=== PATIENT | female | born 1980 | race Hispanic/Latino ===

== ENCOUNTER 2022-04-06 07:49 | Observation (INO) | payer OTHER, SELFPAY ==
[2022-04-06] VITALS (18 sets, daily range): BP systolic 128–211; BP diastolic 67–103; PULSE 52–83; RESP 16–19; TEMP 36.3–37; O2SAT 95–100; BMI 37.2
--- NOTE | 2022-04-06 08:34 | DI.RAD.S_ITS ---
PROCEDURE: XR CHEST 1V INDICATIONS: chest pain TECHNIQUE: One view of the chest was acquired. COMPARISON: None. FINDINGS: Surgical changes and devices: None. Lungs and pleura: Patchy bilateral airspace opacities, more pronounced in the left mid lung and left lung base. No pleural effusions or pneumothorax. Mediastinum: Mediastinal contours appear normal. Heart size is normal. Bones and chest wall: No suspicious bony lesions. Overlying soft tissues appear unremarkable. IMPRESSION: Patchy bilateral airspace opacities likely reflective of atypical pneumonia. Dictated by: Pierce Brown M.D. on 04/06/2022 at 9:14 Approved by: Pierce Brown M.D. on 04/06/2022 at 9:14
[2022-04-06 08:49] LABS: Add Manual Diff / Slide Review NO; Basophils Absolute Auto 0 /uL (0-100); Basophils Percent Auto 0.3 % (0-2); Eosinophils Absolute Auto 300 /uL (0-450); Eosinophils Percent Auto 2.1 % (2-4); Hematocrit 36.7 % (36-46); Hemoglobin 12.5 g/dL (12.0-16.0); Lymphocytes Absolute Auto 2500 /uL (1100-4500); Lymphocytes Percent Auto 20.4 % (25-40); Mean Corpuscular HGB Conc 34.1 % (30-36); Mean Corpuscular Hemoglobin 30.7 PG (26-34); Mean Corpuscular Volume 90.1 fL (80-100); Monocytes Absolute Auto 700 /uL (0-900); Monocytes Percent Auto 5.5 % (3-14); Neutrophils Absolute Auto 8800 /uL (1500-7000); Neutrophils Percent Auto 71.7 % (50-75); Platelet Count 269 X10^3/uL (150-400); Red Blood Cell Count 4.08 X10^6/uL (4.0-5.2); Red Cell Distribution Width 13.6 % (11.6-14.8); White Blood Cell Count 12.3 X10^3/uL (4.5-11.0)
[2022-04-06 08:56] LABS: Alanine Aminotransferase 20 IU/L (<35); Albumin 4.5 g/dL (3.5-5.0); Albumin Globulin Ratio 1.3 (1.0-2.8); Alkaline Phosphatase 63 U/L (38-126); Aspartate Aminotransferase 21 IU/L (14-36); BUN Creatinine Ratio 16.9 (6-22); Bilirubin Total 0.3 mg/dL (0.2-1.3); Blood Urea Nitrogen 12 mg/dL (7-17); Carbon Dioxide 24 mmol/L (22-32); Chloride 105 mmol/L (98-107); Creatine Kinase 48 U/L (30-135); Estimated Glomerular Filt Rate > 60 mL/min (>60); Globulin 3.6 g/dL (1.7-4.1); Glucose 107 mg/dL (70-100); HEMOLYSIS < 15 (0-50); Lipase 89 U/L (23-300); Magnesium 1.6 mg/dL (1.6-2.3); Sodium 140 mmol/L (137-145); Total Protein 8.1 g/dL (6.3-8.2)
--- NOTE | 2022-04-06 09:00 | ED_ITS ---
HPI - Chest Pain General Chief Complaint: Chest Pain Stated Complaint: Chest pain/ high bp, takes bp meds Time Seen by Provider: 04/06/22 09:00 Source: patient Mode of arrival: Ambulatory Limitations: no limitations Limitations: no limitations History of Present Illness HPI narrative: This is a 41-year-old female with history of hypertension, dyslipidemia, diabetes and prior stroke 10 years ago. Patient states today about 630 in the morning she developed substernal chest pain which she describes as 10/10 without radiation, pleuritic which has since decreased to 2/10. Patient denies any shortness of breath currently but states she felt short of breath initially with it. She denies any syncope or lightheadedness, no nausea or vomiting, no diaphoresis. No abdominal, back or flank pain. She did take 162 mg aspirin. She notes she is been out of her lisinopril for the last 3 days but is still taking her labetalol, metformin and has not started her atorvastatin but has a prescription. Patient states that she does not know why she had a stroke in the past she never followed up for it but states it was very minor. She denies surgeries except for dental surgery. She does smoke 5 cigarettes daily, no alcohol, no illicit other than THC edibles. She notes mom's side of the family has had heart attacks, breast cancer, cholesterol diabetes and she is a brother with diabetes and hypertension but no other known cardiac disease. She does have a primary care [facility]. She has never had a stress test or other cardiac workup. Related Data Home Medications Medication Instructions Recorded Confirmed labetalol 200 mg tablet 200 mg PO BID 04/06/22 04/06/22 lisinopril 5 mg tablet 5 mg PO DAILY 04/06/22 04/06/22 Allergies Allergy/AdvReac Type Severity Reaction Status Date / Time kiwi Allergy Verified 04/06/22 16:29 Review of Systems Review of Systems ROS Unobtainable: All systems reviewed & are unremarkable except as noted in HPI and below Patient History Medical History (Updated 04/06/22 @ 11:49 by Paco Longoria DO) HTN (hypertension) Surgical History (Updated 04/06/22 @ 11:49 by Paco Longoria DO) No pertinent past surgical history Family History (Updated 04/06/22 @ 11:50 by Paco Longoria DO) Mother CAD (coronary artery disease) Hypertension Diabetes mellitus Father No pertinent past medical history Social History household members: spouse and family Smoking Status: Never smoker Smoking Status: Never smoker alcohol intake frequency: other Exam Narrative Exam Narrative: GENERAL: Alert and oriented x three, female in mild distress, no diaphoresis HEENT: Head normocephalic, atraumatic, EOMI, pupils reactive, face symmetric, moist mucous membranes NECK: Supple, full range of motion CARDIOVASCULAR: Regular rate and rhythm without murmurs, rubs or gallops. No JVD. No swelling bilateral lower extremities. No reproducible chest pain on palpation. No rash or skin changes. RESPIRATORY: Breath sounds equal bilaterally, no wheezes rales or rhonchi. ABDOMEN: Soft, nontender. Normoactive bowel sounds all 4 quadrants. No guarding or rebound, rigidity, no mass : No CVA tenderness EXTREMITIES: Normal range of motion, no clubbing or edema. Neurovascularly intact NEUROLOGICAL: Cranial nerves II through XII grossly intact. Moving all extremities SKIN: Warm, dry, no petechiae, no rashes or lesions. Initial Vital Signs Initial Vital Signs: Vital Signs Pulse Rate 65 04/06/22 08:03 Pulse Oximetry 99 04/06/22 08:03 Scores HEART Score Heart Score history: Moderately Suspicious Heart Score EKG: Normal Heart Score Age: < 45 years old Heart Score risk factors: > 3 risk factors or hx of atherosclerotic disease Heart Score troponin: < or = to normal limit Heart Score Total: 3 Course Orders Ordered: ED Orders 04/06/22 12:31 Education, smoking cessation ONGOING 04/06/22 15:55 Troponin I Urgent 04/07/22 05:00 Basic Metabolic Panel DAILY Complete Blood Count AUTO DIFF DAILY Hemoglobin A1C% w Est Avg Glu Routine Lipid Panel Routine Magnesium DAILY TSH w/ Reflex to FT4 Routine 04/08/22 05:00 Basic Metabolic Panel DAILY Complete Blood Count AUTO DIFF DAILY Magnesium DAILY 04/09/22 05:00 Basic Metabolic Panel DAILY Complete Blood Count AUTO DIFF DAILY Magnesium DAILY Acetaminophen (Acetaminophen 325 Mg Tablet) 975 mg PO Q8H PRN PRN Reason: Pain, Mild (1-3) Amoxicillin/Clavulanate Potassium (Amoxicillin/Clav 875/125 Mg) 1 tab PO BID EDIL Last Admin: 04/06/22 15:18 Dose: 1 tab Documented By: LDV Aspirin (Aspirin Ec 81 Mg Tablet) 81 mg PO DAILY EDIL Atorvastatin Calcium (Atorvastatin 20 Mg Tablet) 40 mg PO BEDTIME EDIL Azithromycin (Azithromycin 250 Mg Tablet) 250 mg PO DAILY EDIL Ibuprofen (Ibuprofen 600 Mg Tablet) 600 mg PO Q8H PRN PRN Reason: Fever/Mild Pain (1-3) Lisinopril (Lisinopril 5 Mg Tablet) 5 mg PO DAILY EDIL Ondansetron HCl (Ondansetron 4 Mg/2 Ml Inj) 4 mg IV Q8HR PRN PRN Reason: Nausea And Vomiting Discontinued Medications Aspirin (Aspirin 81 Mg Chew Tab) 161 mg PO NOW ONE Stop: 04/06/22 09:20 Last Admin: 04/06/22 09:34 Dose: 161 mg Documented By: RAJWINDER Azithromycin (Azithromycin 250 Mg Tablet) 500 mg PO NOW ONE Stop: 04/06/22 14:09 Last Admin: 04/06/22 15:18 Dose: 500 mg Documented By: LDV Nitroglycerin (Nitroglycerin 0.4 Mg Sl Tab) 0.4 mg SL NOW ONE Stop: 04/06/22 09:20 Last Admin: 04/06/22 09:33 Dose: 0.4 mg Documented By: RAJWINDER Consultations Consultation #1: Dr. Longoria, hospitalist saw patient in the department discussed patient has atypical pneumonia on chest x-ray read but I am unimpressed on myself he did see and evaluate the patient here in the department and elects to keep for observation for stress testing. Time: 10:57 Vital Signs Vital signs: Vital Signs - 8 hr 04/06/22 08:05 04/06/22 08:03 04/06/22 08:30 Temperature 98.6 F Pulse Rate 69 65 58 L Respiratory Rate 19 Blood Pressure 211/103 H Pulse Oximetry 99 99 98 Oxygen Delivery Method Room Air 04/06/22 08:31 04/06/22 08:31 04/06/22 09:00 Temperature Pulse Rate 59 L Respiratory Rate Blood Pressure 147/67 H 172/74 H Pulse Oximetry 99 Oxygen Delivery Method 04/06/22 09:00 04/06/22 09:30 04/06/22 09:30 Temperature Pulse Rate 64 65 Respiratory Rate Blood Pressure 176/80 H Pulse Oximetry 99 100 Oxygen Delivery Method 04/06/22 09:40 04/06/22 09:40 04/06/22 10:00 Temperature Pulse Rate 64 Respiratory Rate Blood Pressure 145/69 H 140/69 Pulse Oximetry 98 Oxygen Delivery Method 04/06/22 10:00 Temperature Pulse Rate 54 L Respiratory Rate Blood Pressure Pulse Oximetry 99 Oxygen Delivery Method MDM - Chest Pain Lab Data Result diagrams: 04/06/22 08:00 04/06/22 08:00 Labs: Lab Results 04/06/22 04/06/22 04/06/22 Range/Units 08:00 08:00 09:30 WBC 12.3 H (4.5-11.0) X10^3/uL RBC 4.08 (4.0-5.2) X10^6/uL Hgb 12.5 (12.0-16.0) g/dL Hct 36.7 (36-46) % MCV 90.1 (80-100) fL MCH 30.7 (26-34) PG MCHC 34.1 (30-36) % RDW 13.6 (11.6-14.8) % Plt Count 269 (150-400) X10^3/uL Neut % (Auto) 71.7 (50-75) % Lymph % (Auto) 20.4 L (25-40) % Gillespie % (Auto) 5.5 (3-14) % Eos % (Auto) 2.1 (2-4) % Baso % (Auto) 0.3 (0-2) % Neut # (Auto) 8800 H (0070-8067) /uL Lymph # (Auto) 2500 (8483-8076) /uL Gillespie # (Auto) 700 (0-900) /uL Eos # (Auto) 300 (0-450) /uL Baso # (Auto) 0 (0-100) /uL Sodium 140 (137-145) mmol/L Potassium 4.0 (3.4-5.1) mmol/L Chloride 105 (98-107) mmol/L Carbon Dioxide 24 (22-32) mmol/L BUN 12 (7-17) mg/dL Creatinine 0.71 (0.52-1.04) mg/dL Estimated GFR > 60 (>60) mL/min BUN/Creatinine Ratio 16.9 (6-22) Glucose 107 H (70-100) mg/dL Calcium 9.0 (8.4-10.2) mg/dL Magnesium 1.6 (1.6-2.3) mg/dL Total Bilirubin 0.3 (0.2-1.3) mg/dL AST 21 (14-36) IU/L ALT 20 (<35) IU/L Alkaline Phosphatase 63 (38-126) U/L Total Creatine Kinase 48 (30-135) U/L CK-MB (CK-2) TNP CK-MB (CK-2) Rel Index TNP Troponin I < 0.012 (0.01-0.034) ng/mL Total Protein 8.1 (6.3-8.2) g/dL Albumin 4.5 (3.5-5.0) g/dL Globulin 3.6 (1.7-4.1) g/dL Albumin/Globulin Ratio 1.3 (1.0-2.8) Lipase 89 (23-300) U/L SARS-CoV-2 (PCR) Negative (Negative) 04/06/22 Range/Units 09:56 WBC (4.5-11.0) X10^3/uL RBC (4.0-5.2) X10^6/uL Hgb (12.0-16.0) g/dL Hct (36-46) % MCV (80-100) fL MCH (26-34) PG MCHC (30-36) % RDW (11.6-14.8) % Plt Count (150-400) X10^3/uL Neut % (Auto) (50-75) % Lymph % (Auto) (25-40) % Gillespie % (Auto) (3-14) % Eos % (Auto) (2-4) % Baso % (Auto) (0-2) % Neut # (Auto) (2605-6095) /uL Lymph # (Auto) (2363-3942) /uL Gillespie # (Auto) (0-900) /uL Eos # (Auto) (0-450) /uL Baso # (Auto) (0-100) /uL Sodium (137-145) mmol/L Potassium (3.4-5.1) mmol/L Chloride (98-107) mmol/L Carbon Dioxide (22-32) mmol/L BUN (7-17) mg/dL Creatinine (0.52-1.04) mg/dL Estimated GFR (>60) mL/min BUN/Creatinine Ratio (6-22) Glucose (70-100) mg/dL Calcium (8.4-10.2) mg/dL Magnesium (1.6-2.3) mg/dL Total Bilirubin (0.2-1.3) mg/dL AST (14-36) IU/L ALT (<35) IU/L Alkaline Phosphatase (38-126) U/L Total Creatine Kinase (30-135) U/L CK-MB (CK-2) CK-MB (CK-2) Rel Index Troponin I < 0.012 (0.01-0.034) ng/mL Total Protein (6.3-8.2) g/dL Albumin (3.5-5.0) g/dL Globulin (1.7-4.1) g/dL Albumin/Globulin Ratio (1.0-2.8) Lipase (23-300) U/L SARS-CoV-2 (PCR) (Negative) Imaging Data Chest x-ray: Radiologist's Impression: [address] [address] XRay Report Signed Patient: Christina Bradshaw MR#: [id number] : 1980 Acct:[id number] Age/Sex: 41 / F Date of Service: 04/06/22 Loc: ED Accession Number: [id number] ?? Procedure: XR chest 1V Ordering Provider: Magi Briseno D.O. PROCEDURE:? XR CHEST 1V ? INDICATIONS:? chest pain ? TECHNIQUE:? One view of the chest was acquired.? ? COMPARISON:? None. ? FINDINGS:? ? Surgical changes and devices:? None.? ? Lungs and pleura:? Patchy bilateral airspace opacities, more pronounced in the left mid lung and left lung base.? No pleural effusions or pneumothorax.? ? Mediastinum:? Mediastinal contours appear normal.? Heart size is normal.? ? Bones and chest wall:? No suspicious bony lesions.? Overlying soft tissues appear unremarkable.? ? IMPRESSION:? Patchy bilateral airspace opacities likely reflective of atypical pneumonia. ? ? ? Dictated by: Pierce Brown M.D. on 04/06/2022 at 9:14 ? ? Approved by: Pierce Brown M.D. on 04/06/2022 at 9:14?? ECG Data Attestation: I personally reviewed and interpreted this ECG as follows: Prior ECG tracings: not available for review Interpretation: Sinus rhythm rate of 62 VA 166 QRS is [address]TC [address] No acute [address] changes appreciated. No priors for comparison. Sinus bradycardia rate of 51 VA 164 QRS of 92 and QTC 411. No acute ST or dynamic ST changes appreciated. Comparison to earlier today MDM Narrative Medical decision making narrative: This is a 41-year-old female with multiple risk factors who was quite hypertensive upon arrival who has been off her lisinopril for the past 3 days with substernal chest pain without radiation with initial shortness of breath no diaphoresis. Patient take 2 baby aspirin prior to arrival blood pressure has b een improving in her chest pain has improved as well she was 172 systolic in the room during my evaluation. Patient was given 2 additional aspirin 1 dose of nitro for chest pain but also for hypertension to see if this improved her symptoms. Initial lab work and EKG is not show acute ACS, dynamic changes. COVID swab was performed, chest x-ray and repeat troponin show possible atypical pneumonia. Patient has not had any infectious symptoms. Offered observation overnight with, we did discuss that stress testing would be very appropriate for this patient although changes on chest x-ray could certainly cause her symptoms today. And refilling her lisinopril and covering with antibiotics. Patient elects to stay for observation seen by hospitalist department. Patient seen by Dr. Longoria in the department. Discharge Plan Departure Patient Disposition: Admitted as Observation Clinical Impression: Chest pain Admit Date/Time: 04/06/22 12:14 Admit Provider: Paco Longoria
[2022-04-06 09:07] LABS: Troponin I < 0.012 ng/mL (0.01-0.034)
[2022-04-06] MEDS: NITROGLYCERIN 0.4 MG SL TAB SL (09:33)
[2022-04-06] MEDS: ASPIRIN 81 MG CHEW TAB 161 MG PO (09:34)
[2022-04-06 10:16] LABS: COVID19 -Nasal RAPID Negative (Negative)
[2022-04-06 10:44] LABS: Troponin I < 0.012 ng/mL (0.01-0.034)
--- NOTE | 2022-04-06 11:48 | P.HP_ITS ---
History of Present Illness History of Present Illness Date Patient Seen: 04/06/22 Chief complaint: Chest pain/ high bp, takes bp meds Narrative: This is a 41-year-old female with a past medical history of hypertension and obesity who presented to the emergency room with chest pain. 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 This morning she had severe 10/10 substernal chest pressure. There was no radiation into her neck or jaw, and she was not nauseous, did not have any arm pain or tingling, and it was constant. She took 2 aspirin tablets with some improvement and called EMS. She was given nitro in the emergency room with ultimately resolution of her symptoms. She smokes about a quarter pack of cigarettes a day. Her mother has heart disease but she is not sure at what age this developed. She has not taken her lisinopril in a couple of days. She denies fever, chills, cough, LE edema. She did endorse palpitations during this episode. LMP was mid february, she states she is not . She does report bilateral wrist pain with hand numbness and was recently referred to neurology. In the emergency room, she was hypertensive but the remainder of her vital signs were unremarkable. Laboratory evaluation showed a mild leukocytosis with WBC 12.3. Chemistries were unremarkable. Troponins were negative x2 and COVID-19 testing was negative. CXR read by radiology as patchy bilateral opacities consistent with atypical pneumonia. Patient History Medical History (Updated 04/06/22 @ 11:49 by Paco Longoria DO) HTN (hypertension) Surgical History (Updated 04/06/22 @ 11:49 by Paco Longoria DO) No pertinent past surgical history Family & Social History Family History (Updated 04/06/22 @ 11:50 by Paco Longoria DO) Mother CAD (coronary artery disease) Hypertension Diabetes mellitus Father No pertinent past medical history Safety & Behavioral: Feels Safe in Current Yes Environment Been Physically Hurt or No Threatened By a Person Tobacco & Substance use: Smoking Status Never smoker alcohol intake frequency other Meds Home Medications and Allergies Home Medications Medication Instructions Recorded Confirmed Type labetalol 200 mg tablet 200 mg PO BID 04/06/22 04/06/22 History lisinopril 5 mg tablet 5 mg PO DAILY 04/06/22 04/06/22 History Review of Systems Review of Systems Narrative: All other systems reviewed with the patient and are negative unless otherwise stated. Exam Vital Signs (past 8 hours): - 04/06/22 08:05 04/06/22 08:03 04/06/22 08:30 Temperature 98.6 F Pulse Rate 69 65 58 L Respiratory Rate 19 Blood Pressure 211/103 H Pulse Oximetry 99 99 98 Oxygen Delivery Method Room Air 04/06/22 08:31 04/06/22 08:31 04/06/22 09:00 Temperature Pulse Rate 59 L Respiratory Rate Blood Pressure 147/67 H 172/74 H Pulse Oximetry 99 Oxygen Delivery Method 04/06/22 09:00 04/06/22 09:30 04/06/22 09:30 Temperature Pulse Rate 64 65 Respiratory Rate Blood Pressure 176/80 H Pulse Oximetry 99 100 Oxygen Delivery Method 04/06/22 09:40 04/06/22 09:40 04/06/22 10:00 Temperature Pulse Rate 64 Respiratory Rate Blood Pressure 145/69 H 140/69 Pulse Oximetry 98 Oxygen Delivery Method 04/06/22 10:00 04/06/22 10:30 04/06/22 10:30 Temperature Pulse Rate 54 L 54 L Respiratory Rate 17 Blood Pressure 128/70 Pulse Oximetry 99 99 Oxygen Delivery Method 04/06/22 11:00 04/06/22 11:01 04/06/22 11:01 Temperature Pulse Rate 56 L 56 L Respiratory Rate 16 19 Blood Pressure 147/67 H Pulse Oximetry 100 100 Oxygen Delivery Method 04/06/22 11:30 04/06/22 11:31 04/06/22 11:31 Temperature Pulse Rate 58 L 56 L Respiratory Rate 18 18 Blood Pressure 175/83 H Pulse Oximetry 100 100 Oxygen Delivery Method Oxygen Delivery Method Room Air Narrative Exam Narrative: General:? Patient is well developed and well nourished, in no distress at this time. HEENT:? Normocephalic, atraumatic, extraocular muscles intact, oral pharynx is clear and mucous membranes are moist. Neck: supple and symmetric, trachea is midline, no cervical adenopathy. Negative for JVD Chest:? Normal AP diameter and contour without kyphoscoliosis, no tachypnea, equal chest rise bilaterally. Lungs:? CTA b/l no wheezing rhonchi or rales. Cardio:?RRR no m/r/g. Abdomen: S NT ND. No CVA tenderness. Musculoskeletal:? Muscle strength and tone are equal within normal limits, no deformity. + tinel sign bilateral wrists. Extremities: No edema or joint effusions. No cyanosis or clubbing. Skin:? Pale,? Warm to touch,dry and intact without rashes, ulcerations or petechiae.? Neuro:? Alert and orientated x3,? sensation to touch intact in all extremities, no gross deficits noted of cranial nerves. Psych:? Patient has a well-kept appearance, appropriate affect, mental status attitude thought context and judgment are appropriate for age. Objective ECG Impression: normal sinus rhythm as interpreted by me. Imaging Chest x-ray: My impression: small amount of right interlobular fluid, no discrete consolidations. Labs Result Diagrams: 04/06/22 08:00 04/06/22 08:00 Labs: Laboratory Results - last 24 hr 04/06/22 04/06/22 04/06/22 08:00 08:00 09:30 WBC 12.3 H RBC 4.08 Hgb 12.5 Hct 36.7 MCV 90.1 MCH 30.7 MCHC 34.1 RDW 13.6 Plt Count 269 Neut % (Auto) 71.7 Lymph % (Auto) 20.4 L Barton % (Auto) 5.5 Eos % (Auto) 2.1 Baso % (Auto) 0.3 Neut # (Auto) 8800 H Lymph # (Auto) 2500 Barton # (Auto) 700 Eos # (Auto) 300 Baso # (Auto) 0 Sodium 140 Potassium 4.0 Chloride 105 Carbon Dioxide 24 BUN 12 Creatinine 0.71 Estimated GFR > 60 BUN/Creatinine Ratio 16.9 Glucose 107 H Calcium 9.0 Magnesium 1.6 Total Bilirubin 0.3 AST 21 ALT 20 Alkaline Phosphatase 63 Total Creatine Kinase 48 CK-MB (CK-2) TNP CK-MB (CK-2) Rel Index TNP Troponin I < 0.012 Total Protein 8.1 Albumin 4.5 Globulin 3.6 Albumin/Globulin Ratio 1.3 Lipase 89 SARS-CoV-2 (PCR) Negative 04/06/22 09:56 WBC RBC Hgb Hct MCV MCH MCHC RDW Plt Count Neut % (Auto) Lymph % (Auto) Barton % (Auto) Eos % (Auto) Baso % (Auto) Neut # (Auto) Lymph # (Auto) Barton # (Auto) Eos # (Auto) Baso # (Auto) Sodium Potassium Chloride Carbon Dioxide BUN Creatinine Estimated GFR BUN/Creatinine Ratio Glucose Calcium Magnesium Total Bilirubin AST ALT Alkaline Phosphatase Total Creatine Kinase CK-MB (CK-2) CK-MB (CK-2) Rel Index Troponin I < 0.012 Total Protein Albumin Globulin Albumin/Globulin Ratio Lipase SARS-CoV-2 (PCR) Assessment & Plan Assessment & Plan narrative: 1. Chest pain, possible atypical bacterial pneumonia. - HEART score is 3-4. Given presentation with worsening chest pain will further risk stratify with stress testing. - start asa and statin for now - tele monitoring. - differentials include atypical pneumonia, occupation exposure leading to reactive airway. - rule out ACS with 8 hour troponin. - start antibiotics given elevated WBC, pain, and CXR findings with augmentin and azithromycin. 2. HTN - continue home antihypertensives, but will need to hold labetalol prior to stress testing. 3. Obesity - increases risk of cardiovascular disease and contributes to need for stress testing. 4. Tobacco use - counseled on cessation, she is not interested in nicotine patches currently. 5. Bilateral carpal tunnel - counseled on prevention measures including wrist bracing. Can have NSAIDS prn for pain. Code:Full, surrogate is her spouse. I have utilized all available immediate resources to obtain, update, or review the patient's current medications. COVID-19 COVID-19 status: Negative Time Spent With Patient Critical Care time: I spent a total of [] minutes of critical care time on this patient's care today; this time is exclusive of procedural time.
--- NOTE | 2022-04-06 13:47 | DI.NM.S_ITS ---
PROCEDURE: NM EXERCISE TREADMILL NON NUC COMPARISON: None. INDICATIONS: chest pain FINDINGS: The patient exercised for 9 minutes and 10 seconds, reaching 91% of maximum predicted heart rate (10.1 METs, HEMA -2%). Very slight chest pain at peak exercise. No ischemic ST changes with exercise. No ectopy. Borderline hypertensive response to exercise (resting BP 140/70mmHg, max BP 210/73mmHg). IMPRESSION: Low risk, normal treadmill stress test with average exercise tolerance. Very slight, non-diagnostic chest pain at peak exercise. No ischemic ECG changes with exercise or during recovery. Borderline hypertensive response to exercise (resting BP 140/70mmHg, max BP 210/73mmHg). Dictated by: Phu Machuca MD on 04/07/2022 at 13:20 Approved by: Phu Machuca MD on 04/07/2022 at 13:22
[2022-04-06] MEDS: AMOXICILLIN/CLAV 875/125 MG 1 TAB PO ×2 (15:18→20:34)
[2022-04-06] MEDS: AZITHROMYCIN 250 MG TABLET 500 MG PO (15:18)
[2022-04-06 16:25] LABS: Troponin I < 0.012 ng/mL (0.01-0.034)
[2022-04-06] MEDS: ATORVASTATIN 20 MG TABLET 40 MG PO (20:34)
[2022-04-07] VITALS: BP 130/74; PULSE 65; RESP 14; TEMP 36.7; O2SAT 99
[2022-04-07 04:00] VITALS: BP 126/61; PULSE 64; RESP 14; TEMP 35.8; O2SAT 97
[2022-04-07 05:57] LABS: Add Manual Diff / Slide Review NO; Basophils Absolute Auto 100 /uL (0-100); Basophils Percent Auto 0.6 % (0-2); Eosinophils Absolute Auto 300 /uL (0-450); Eosinophils Percent Auto 2.8 % (2-4); Hematocrit 36.8 % (36-46); Hemoglobin 12.5 g/dL (12.0-16.0); Lymphocytes Absolute Auto 2500 /uL (1100-4500); Lymphocytes Percent Auto 26.8 % (25-40); Mean Corpuscular HGB Conc 33.9 % (30-36); Mean Corpuscular Hemoglobin 30.5 PG (26-34); Mean Corpuscular Volume 89.7 fL (80-100); Monocytes Absolute Auto 600 /uL (0-900); Monocytes Percent Auto 6.3 % (3-14); Neutrophils Absolute Auto 6000 /uL (1500-7000); Neutrophils Percent Auto 63.5 % (50-75); Platelet Count 261 X10^3/uL (150-400); Red Cell Distribution Width 13.8 % (11.6-14.8); White Blood Cell Count 9.4 X10^3/uL (4.5-11.0)
[2022-04-07 06:11] LABS: BUN Creatinine Ratio 14.9 (6-22); Blood Urea Nitrogen 10 mg/dL (7-17); Calcium 8.7 mg/dL (8.4-10.2); Carbon Dioxide 27 mmol/L (22-32); Chloride 105 mmol/L (98-107); Cholesterol 198 mg/dL (140-199); Estimated Glomerular Filt Rate > 60 mL/min (>60); Glucose 100 mg/dL (70-100); HDL Cholesterol 31 mg/dL (40-60); HEMOLYSIS < 15 (0-50); LDL Cholesterol Calculated 130 mg/dL (<100); Magnesium 1.8 mg/dL (1.6-2.3); Potassium 4.3 mmol/L (3.4-5.1); Sodium 138 mmol/L (137-145); Triglycerides 186 mg/dL (35-150)
[2022-04-07 06:39] LABS: Hemoglobin A1C% w Est Avg Glu 6.1 % (4.0-6.0)
[2022-04-07 06:47] LABS: TSH w/ Reflex to FT4 1.53 uIU/mL (0.47-4.68)
[2022-04-07 08:00] VITALS: BP 133/69; PULSE 61; RESP 16; TEMP 36.5; O2SAT 99
[2022-04-07] MEDS: ASPIRIN EC 81 MG TABLET PO (09:49)
[2022-04-07] MEDS: AMOXICILLIN/CLAV 875/125 MG 1 TAB PO (09:49)
[2022-04-07 09:50] VITALS: BP 133/69; PULSE 66
[2022-04-07] MEDS: AZITHROMYCIN 250 MG TABLET PO (09:50)
[2022-04-07] MEDS: lisinopriL 5 MG TABLET PO (09:50)
[2022-04-07 12:00] VITALS: BP 110/58; PULSE 74; RESP 18; TEMP 36.4; O2SAT 100; O2SAT 99
--- NOTE | 2022-04-07 13:24 | PM.DS.1 ---
History of Present Illness History of Present Illness Date Patient Seen: 04/07/22 Time Patient Seen: 13:24 Chief complaint: Chest pain/ high bp, takes bp meds Narrative: This is a 41-year-old female with a past medical history of hypertension and obesity who presented to the emergency room with chest pain. She works at a local [employer] and over the past few months she has noticed some mild substernal chest discomfort, both at work and at home but she notices it more at work. This morning she had severe 10/10 substernal chest pressure. There was no radiation into her neck or jaw, and she was not nauseous, did not have any arm pain or tingling, and it was constant. She took 2 aspirin tablets with some improvement and called EMS. She was given nitro in the emergency room with ultimately resolution of her symptoms. She smokes about a quarter pack of cigarettes a day. Her mother has heart disease but she is not sure at what age this developed. She has not taken her lisinopril in a couple of days. She denies fever, chills, cough, LE edema. She did endorse palpitations during this episode. LMP was mid february, she states she is not . She does report bilateral wrist pain with hand numbness and was recently referred to neurology. In the emergency room, she was hypertensive but the remainder of her vital signs were unremarkable. Laboratory evaluation showed a mild leukocytosis with WBC 12.3. Chemistries were unremarkable. Troponins were negative x2 and COVID-19 testing was negative. CXR read by radiology as patchy bilateral opacities consistent with atypical pneumonia. Discharge Providers Provider Date of admission: 04/06/22 12:14 Discharge Date: 04/07/22 Primary care physician: TOÑITO Benítez Discharge provider: Paco Longoria DO Summary Hospital Course Discharge Diagnosis: 1. Chest pain, possible atypical bacterial pneumonia. 2. HTN ? 3. Obesity 4. Tobacco use 5. Bilateral carpal tunnel Hospital Course: This is a 41-year-old female with a past medical history of hypertension, obesity, and tobacco use who was admitted with chest pain. Given her multiple risk factors and concerning story she was admitted for further risk stratification. She underwent a non-nuclear EKG stress test which was technically nondiagnostic as she did experience 0.5/10 chest pain, though EKG tracing showed no evidence of acute ischemia. Chest x-ray did show some fluid and patchy bilateral infiltrates, combined with pain mild leukocytosis she was started on treatments for an atypical pneumonia with Augmentin and azithromycin. 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 She was given a prescription for as-needed albuterol to see if this helps with her symptoms. Her blood pressure was markedly elevated on admission but this improved with resumption of her home medications. Patient was counseled on smoking cessation. Medication changes are recommended to her antihypertensives at this time, and follow-up with her primary care provider is recommended if symptoms continue. Exam Vital Signs (past 8 hours): - 04/07/22 08:00 04/07/22 09:50 04/07/22 12:00 Temperature 97.7 F 97.6 F Pulse Rate 61 66 74 Respiratory Rate 16 18 Blood Pressure 133/69 133/69 110/58 L Pulse Oximetry 99 100 Oxygen Flow Rate 0 0 Oxygen Delivery Method Room Air Oxygen Flow Rate 0 Narrative Exam Narrative: General:? Patient is well developed and well nourished, in no distress at this time. Chest:? Normal AP diameter and contour without kyphoscoliosis, no tachypnea, equal chest rise bilaterally. Lungs:? CTA b/l no wheezing rhonchi or rales. Cardio:?RRR no m/r/g. Extremities: No edema or joint effusions. No cyanosis or clubbing. Neuro:? Alert and orientated x3,? sensation to touch intact in all extremities, no gross deficits noted of cranial nerves. Psych:? Patient has a well-kept appearance, appropriate affect, mental status attitude thought context and judgment are appropriate for age. Objective Labs Result Diagrams: 04/07/22 05:40 04/07/22 05:40 Labs: Laboratory Results - last 24 hr 04/06/22 04/07/22 04/07/22 15:55 05:40 05:40 WBC 9.4 RBC 4.10 Hgb 12.5 Hct 36.8 MCV 89.7 MCH 30.5 MCHC 33.9 RDW 13.8 Plt Count 261 Neut % (Auto) 63.5 Lymph % (Auto) 26.8 [place] % (Auto) 6.3 Eos % (Auto) 2.8 Baso % (Auto) 0.6 Neut # (Auto) 6000 Lymph # (Auto) 2500 [place] # (Auto) 600 Eos # (Auto) 300 Baso # (Auto) 100 Sodium 138 Potassium 4.3 Chloride 105 Carbon Dioxide 27 BUN 10 Creatinine 0.67 Estimated GFR > 60 BUN/Creatinine Ratio 14.9 Glucose 100 Hemoglobin A1c Calcium 8.7 Magnesium 1.8 Troponin I < 0.012 Triglycerides 186 H Cholesterol 198 LDL Cholesterol, Calc 130 H HDL Cholesterol 31 L TSH 04/07/22 04/07/22 05:40 05:40 WBC RBC Hgb Hct MCV MCH MCHC RDW Plt Count Neut % (Auto) Lymph % (Auto) [place] % (Auto) Eos % (Auto) Baso % (Auto) Neut # (Auto) Lymph # (Auto) [place] # (Auto) Eos # (Auto) Baso # (Auto) Sodium Potassium Chloride Carbon Dioxide BUN Creatinine Estimated GFR BUN/Creatinine Ratio Glucose Hemoglobin A1c 6.1 H Calcium Magnesium Troponin I Triglycerides Cholesterol LDL Cholesterol, Calc HDL Cholesterol TSH 1.53 [facility] Medical History (Updated 04/06/22 @ 11:49 by Paco Longoria DO) HTN (hypertension) Surgical History (Updated 04/06/22 @ 11:49 by Paco Longoria DO) No pertinent past surgical history Family History (Updated 04/06/22 @ 11:50 by Paco Longoria DO) Mother CAD (coronary artery disease) Hypertension Diabetes mellitus Father No pertinent past medical history Social History household members: spouse and family Smoking Status: Never smoker Discharge Plan Discharge Plan Patient Disposition: Home Provider Discharge Comment: You were admitted to the hospital with chest pain. Stress testing was normal. Possible etiologies include occupational exposure or atypical pneumonia. An albuterol inhaler was sent to see if this will help some of your symptoms. You should complete antibiotics at home, no medication changes are recommended otherwise. Discharge orders & Medications Prescriptions: New amoxicillin-pot clavulanate 875-125 mg Tablet 1 tab PO BID 6 Days Qty: 12 0RF azithromycin [Zithromax Z-Isrrael] 250 mg Tablet 250 mg PO DAILY 5 Days Qty: 5 0RF albuterol sulfate 90 mcg/actuation HFA aerosol inhaler 1 inh inhalation QID PRN (Reason: shortness of breath or wheezing) Qty: 6.7 0RF Continued labetalol 200 mg tablet 200 mg PO BID lisinopril 5 mg tablet 5 mg PO DAILY 90 Days Qty: 90 0RF Follow up/Referrals: Lalitha Lopez ARNP [Primary Care Provider] - Diet/Activity/Treatments Diet: Diet as Tolerated Activity: As tolerated Visit Report/Discharge Packet Instructions: DI for Chest Pain Discharge Data Primary Care Provider: Lalitha Lopez Attending Provider: Paco Longoria
--- NOTE | 2022-04-07 13:33 | PC.NURSE ---
Pt A&OX3, VSS, afebrile on RA. She denies any CP nausea, vomitting, dizziness, SOB or other cardiac symptoms. She is taken for stress test this a.m. and returns just after noon and able to eat lunch. MD at bedside clearing patient for discharge home this afternoon. She verbalizes understanding of plan of care, discharge medications and follow up care.
--- NOTE | 2022-04-07 13:51 | CM.DANOTE ---
Patient is a 41 yo female who was admitted on 04/06/22 for Chest Pain r/o and possible pneumonia. Pt has [employer] MNT for insurance and her PCP is Lalitha Lopez. EMR was reviewed. Per MD, pt with a hx of hypertension, obesity and smokes tobacco. Pt to have stress test today. Pt lives in [facility] with her spouse and works and drives at baseline and is independent. Per MD, stress test returned normal and pt medically stable to d/c home today with no identified barriers to discharge. No bedside assessment at this time due to triage needs and SW being on hold with an insurance company for an urgent d/c for another pt and no identified discharge planning needs. Plan: Patient to d/c home today via POV and oral abx and meds and outpt follow up. No SW needs at this time, please refer if indicated. CRIS Coles
== END 2022-04-07 14:08 | disposition home or self-care (01) ==
LOC: ED 11:34 → AC 12:15
PROVIDERS: Admitting Provider Internal Medicine; Emergency Provider Emergency Medicine; PCP Nurse Practitioner; Visit Provider Internal Medicine
DX: R07.9 Chest pain, unspecified (principal); I10 Essential (primary) hypertension; E78.5 Hyperlipidemia, unspecified; E66.9 Obesity, unspecified; F17.210 Nicotine dependence, cigarettes, uncomplicated; G56.03 Carpal tunnel syndrome, bilateral upper limbs; E11.9 Type 2 diabetes mellitus without complications; Z86.73 Personal history of transient ischemic attack (TIA), and cerebral infarction without residual deficits; Z79.84 Long term (current) use of oral hypoglycemic drugs; Z20.822 Contact with and (suspected) exposure to COVID-19
CPT/HCPCS: 36415; 71045; 80048; 80053; 80061; 82550; 83036; 83690; 83735; 84443; 84484; 85025; 87635; 93005; 93010; 93017; 99284; C9803; G0378